=== PATIENT | male | born 1965 | race Caucasian/White ===

== ENCOUNTER 2021-11-28 10:37 | Emergency (ER) | payer OTHER, SELFPAY ==
[~2021-11-28] VITALS: Ht 175.3 cm; Wt 75.2 kg
[~2021-11-28 10:37] MED LIST: ACET65TA PO; AMBI10TA PO; CIPR25SS PO; FLAG500T PO; LISI10TA4 OR; ONDA-1 PO; PERC7.5T8 PO; ZEST20TA PO
[2021-11-28 12:12] LABS: BASO % 0.2 % (0.0-1.0); EOS # 0.1 10^3/uL (0.0-0.5); EOS % 1.1 % (0.0-3.0); HEMATOCRIT 47.4 % (42.0-52.0); HEMOGLOBIN 16.1 g/dl (13.5-17.5); LYMPH # 0.9 10^3/uL (1.5-5.0); MEAN CORPUSCULAR HEMOGLOBIN 28.8 pg (27.0-33.0); MEAN CORPUSCULAR VOLUME 84.8 fl (80.0-96.0); MONO # 0.6 10^3/uL (0.0-0.8); MONO % 4.6 % (2.0-8.0); NEUTROPHILS # 11.4 10^3/uL (1.5-8.5); NEUTROPHILS % 86.6 % (36.0-66.0); PLATELET COUNT, AUTOMATED 305 10^3/uL (150-450); RED BLOOD COUNT 5.59 10^6/uL (4.30-6.10); WHITE BLOOD COUNT 13.2 10^3/uL (4.0-10.0)
[2021-11-28] MEDS ORDERED: ASPIRIN 325 MG TAB PO ONE (12:25)
[2021-11-28 12:38] VITALS: BP 176/114
[2021-11-28 13:09] LABS: BLOOD UREA NITROGEN 15 MG/DL (7-18); CALCIUM LEVEL 9.5 MG/DL (8.5-10.1); CARBON DIOXIDE LEVEL 27 MEQ/L (21-32); CHLORIDE LEVEL 105 MEQ/L (98-107); CREATININE FOR GFR 1.01 MG/DL (0.70-1.30); GLOMERULAR FILTRATION RATE > 60.0 (>56); GLUCOSE, FASTING 97 MG/DL (70-100); POTASSIUM SERUM 4.5 MEQ/L (3.5-5.1); SODIUM LEVEL 138 MEQ/L (136-145)
[2021-11-28 13:11] LABS: CK-MB VALUE MASS 1.1 NG/ML (<3.6); MB/CK RELATIVE INDEX 0.38 (< OR =4)
[2021-11-28 14:03] LABS: CK-MB VALUE MASS < 1.0 NG/ML (<3.6); CPK CREATINE PHOSPHOKINASE 161 U/L (39-308); MB/CK RELATIVE INDEX 0.62 (< OR =4)
[2021-11-28] MEDS ORDERED: PRIL20TA2 PO (14:12)
[2021-11-28] MEDS ORDERED: LISI10TA22 PO (14:12)
[2021-11-28] MEDS ORDERED: ASPI81TA26 PO (14:12)
[2021-11-28 14:34] VITALS: BP 138/66
== END 2021-11-28 14:39 | disposition home or self-care (01) ==
LOC: M ED 10:37
DX: R07.89 Other chest pain (principal); I10 Essential (primary) hypertension; K21.9 Gastro-esophageal reflux disease without esophagitis; Z82.49 Family history of ischemic heart disease and other diseases of the circulatory system

== ENCOUNTER 2022-05-09 14:36 | Emergency (ER) | payer SELFPAY ==
[~2022-05-09] VITALS: Ht 175.3 cm; Wt 70.4 kg
[~2022-05-09 14:36] MED LIST changes: +ASPI81TA26 PO; +LISI10TA22 PO; +PRIL20TA2 PO
[2022-05-09 15:06] LABS: BASO % 0.2 % (0.0-1.0); EOS # 0.5 10^3/uL (0.0-0.5); EOS % 2.8 % (0.0-3.0); HEMATOCRIT 46.6 % (42.0-52.0); HEMOGLOBIN 15.3 g/dl (13.5-17.5); LYMPH # 1.1 10^3/uL (1.5-5.0); LYMPH % 6.5 % (24.0-44.0); MEAN CORPUSCULAR HEMOGLOBIN 27.7 pg (27.0-33.0); MEAN CORPUSCULAR HGB CONC 32.8 g/dl (32.0-36.5); MEAN CORPUSCULAR VOLUME 84.3 fl (80.0-96.0); MONO # 1.2 10^3/uL (0.0-0.8); MONO % 7.1 % (2.0-8.0); NEUTROPHILS # 14.2 10^3/uL (1.5-8.5); NEUTROPHILS % 82.7 % (36.0-66.0); PLATELET COUNT, AUTOMATED 265 10^3/uL (150-450); RED BLOOD COUNT 5.53 10^6/uL (4.30-6.10); WHITE BLOOD COUNT 17.2 10^3/uL (4.0-10.0)
[2022-05-09 16:05] LABS: ALBUMIN 3.7 GM/DL (3.2-5.2); ALT/SGPT 23 U/L (12-78); BILIRUBIN,DIRECT 0.5 MG/DL (0.0-0.2); BILIRUBIN,TOTAL 1.5 MG/DL (0.2-1.0); BLOOD UREA NITROGEN 16 MG/DL (7-18); CALCIUM LEVEL 9.1 MG/DL (8.5-10.1); CARBON DIOXIDE LEVEL 27 MEQ/L (21-32); CHLORIDE LEVEL 102 MEQ/L (98-107); CREATININE FOR GFR 1.16 MG/DL (0.70-1.30); GLOMERULAR FILTRATION RATE > 60.0 (>56); GLUCOSE, FASTING 108 MG/DL (70-100); POTASSIUM SERUM 3.6 MEQ/L (3.5-5.1); SODIUM LEVEL 138 MEQ/L (136-145); TOTAL PROTEIN 7.3 GM/DL (6.4-8.2)
[2022-05-09] MEDS ORDERED: OMEP40CA4 PO (19:17)
[2022-05-09] MEDS ORDERED: SUCR1TA PO (19:17)
[2022-05-09 19:28] VITALS: BP 146/82
[2022-05-09 22:29] LABS: LIPASE 66 U/L (73-393)
== END 2022-05-09 19:28 | disposition home or self-care (01) ==
LOC: M ED 14:36
DX: R07.89 Other chest pain (principal); K21.9 Gastro-esophageal reflux disease without esophagitis; R00.0 Tachycardia, unspecified; I10 Essential (primary) hypertension; Z90.49 Acquired absence of other specified parts of digestive tract; Z79.82 Long term (current) use of aspirin; Z79.899 Other long term (current) drug therapy

== ENCOUNTER 2023-08-19 13:20 | Emergency (ER) | payer BC, SELFPAY ==
[~2023-08-19] VITALS: Ht 175.3 cm; Wt 72.7 kg
[2023-08-19 13:20] VITALS: TEMP 97.6
[~2023-08-19 13:20] MED LIST changes: +OMEP40CA4 PO; +SUCR1TA PO
[2023-08-19] MEDS: SUCRALFATE SUSP 1GM/10ML UD PO ONE (14:13)
[2023-08-19] MEDS: PANTOPRAZOLE 40MG VIAL IV ONE (14:13)
[2023-08-19 14:24] LABS: BASO # 0.1 10^3/uL (0.0-0.2); BASO % 0.4 % (0.0-1.0); EOS # 0.5 10^3/uL (0.0-0.5); EOS % 4.6 % (0.0-3.0); HEMOGLOBIN 15.9 g/dl (13.5-17.5); LYMPH # 1.8 10^3/uL (1.5-5.0); LYMPH % 15.4 % (24.0-44.0); MEAN CORPUSCULAR HEMOGLOBIN 28.2 pg (27.0-33.0); MEAN CORPUSCULAR HGB CONC 33.8 g/dl (32.0-36.5); MEAN CORPUSCULAR VOLUME 83.3 fl (80.0-96.0); MONO # 0.8 10^3/uL (0.0-0.8); MONO % 7.1 % (2.0-8.0); NEUTROPHILS # 8.4 10^3/uL (1.5-8.5); NEUTROPHILS % 72.2 % (36.0-66.0); PLATELET COUNT, AUTOMATED 333 10^3/uL (150-450); RED BLOOD COUNT 5.64 10^6/uL (4.30-6.10); WHITE BLOOD COUNT 11.6 10^3/uL (4.0-10.0)
[2023-08-19 14:48] LABS: LIPASE 26 U/L (12-53)
[2023-08-19 14:51] LABS: ALBUMIN 3.8 G/DL (3.2-5.2); ALKALINE PHOSPHATASE 135 U/L (46-116); ALT/SGPT 25 U/L (7.0-40); AST/SGOT 19 U/L (<34); BILIRUBIN,DIRECT 0.2 MG/DL (<0.4); BILIRUBIN,TOTAL 0.7 MG/DL (0.3-1.2); BLOOD UREA NITROGEN 14 MG/DL (9-23); CALCIUM LEVEL 9.4 MG/DL (8.5-10.1); CARBON DIOXIDE LEVEL 27 MMOL/L (20-31); CHLORIDE LEVEL 105 MMOL/L (98-107); CK-MB VALUE MASS < 1.0 NG/ML (<3.6); CREATININE FOR GFR 0.97 MG/DL (0.70-1.30); GLOMERULAR FILTRATION RATE > 60.0 (>56); GLUCOSE, FASTING 98 MG/DL (60-100); POTASSIUM SERUM 4.7 MMOL/L (3.5-5.1); SODIUM LEVEL 138 MMOL/L (136-145); TOTAL PROTEIN 7.5 G/DL (5.7-8.2)
[2023-08-19 14:52] LABS: CPK CREATINE PHOSPHOKINASE 81 U/L (46-171); MB/CK RELATIVE INDEX 1.23 (< OR =4); THYROID STIMULATING HORMONE 2.271 uIU/ML (0.55-4.78)
[2023-08-19] MEDS ORDERED: ISOVUE-370 76% 100ML VIAL As Ordered ONE (15:00)
[2023-08-19] MEDS: MORPHINE 2 MG/ML 1ML VIAL IV ONE (15:08)
[2023-08-19] MEDS: MORPHINE 4 MG/ML 1ML VIAL IV PRN (15:40)
[2023-08-19 15:53] LABS: CK-MB VALUE MASS < 1.0 NG/ML (<3.6)
[2023-08-19 15:54] LABS: CPK CREATINE PHOSPHOKINASE 176 U/L (46-171); MB/CK RELATIVE INDEX 0.56 (< OR =4)
[2023-08-19] MEDS ORDERED: HYDR-3713 PO (16:19)
[2023-08-19] MEDS ORDERED: SUCR1SS PO (16:37)
[2023-08-19 16:40] VITALS: BP 149/76; O2SAT 98
== END 2023-08-19 16:47 | disposition home or self-care (01) ==
LOC: M ED 13:20
DX: K80.50 Calculus of bile duct without cholangitis or cholecystitis without obstruction (principal); K21.9 Gastro-esophageal reflux disease without esophagitis; Z98.52 Vasectomy status; Z79.1 Long term (current) use of non-steroidal anti-inflammatories (NSAID); Z79.810 Long term (current) use of selective estrogen receptor modulators (SERMs)
CPT/HCPCS: 71045; 71275; 74177; 80048; 80076; 82550; 82553; 83690; 83880; 84443; 84484; 85025; 93005; 93041; 94760; 96374; 96375; 96376; 99284; C9113; Q9967

== ENCOUNTER → 2023-10-04 | Outpatient (CLI) | payer BC ==
[~2023-10-04] MED LIST changes: +HYDR-3713 PO; +SUCR1SS PO
[2023-10-04 19:03] LABS: BASO # 0.1 10^3/uL (0.0-0.2); BASO % 0.6 % (0.0-1.0); EOS # 0.4 10^3/uL (0.0-0.5); EOS % 4.9 % (0.0-3.0); HEMATOCRIT 48.9 % (42.0-52.0); HEMOGLOBIN 16.3 g/dl (13.5-17.5); LYMPH # 2.2 10^3/uL (1.5-5.0); LYMPH % 25.1 % (24.0-44.0); MEAN CORPUSCULAR HEMOGLOBIN 28.3 pg (27.0-33.0); MEAN CORPUSCULAR HGB CONC 33.3 g/dl (32.0-36.5); MEAN CORPUSCULAR VOLUME 84.9 fl (80.0-96.0); MONO # 0.6 10^3/uL (0.0-0.8); MONO % 6.8 % (2.0-8.0); NEUTROPHILS # 5.3 10^3/uL (1.5-8.5); PLATELET COUNT, AUTOMATED 283 10^3/uL (150-450); RED BLOOD COUNT 5.76 10^6/uL (4.30-6.10); WHITE BLOOD COUNT 8.6 10^3/uL (4.0-10.0)
[2023-10-04 19:28] LABS: HEMOGLOBIN A1c 5.3 % (4.0-6.0)
[2023-10-04 19:33] LABS: ALBUMIN 4.4 G/DL (3.2-5.2); ALKALINE PHOSPHATASE 130 U/L (46-116); ALT/SGPT 30 U/L (7.0-40); AST/SGOT 18 U/L (<34); BILIRUBIN,TOTAL 0.4 MG/DL (0.3-1.2); BLOOD UREA NITROGEN 19 MG/DL (9-23); CALCIUM LEVEL 9.4 MG/DL (8.5-10.1); CARBON DIOXIDE LEVEL 28 MMOL/L (20-31); CHLORIDE LEVEL 102 MMOL/L (98-107); CHOLESTEROL LEVEL 264 MG/DL (<200); CHOLESTEROL RISK RATIO 5.21 (<5); CREATININE FOR GFR 0.89 MG/DL (0.70-1.30); GLOMERULAR FILTRATION RATE > 60.0 (>56); GLUCOSE, FASTING 63 MG/DL (60-100); HDL CHOLESTEROL 50.6 MG/DL (>40); LDL CHOLESTEROL 140.6 MG/DL (<100); NON-HDL-C 213.4 MG/DL; POTASSIUM SERUM 4.1 MMOL/L (3.5-5.1); SODIUM LEVEL 140 MMOL/L (136-145); TRIGLYCERIDES LEVEL 364 MG/DL (<150)
[2023-10-06 10:08] LABS: PSA TOTAL 1.6 ng/mL (0.0-4.0); TESTOSTERONE FREE (DIRECT) 9.2 pg/mL (7.2-24.0)
== END ==
LOC: M WUC 14:40
PROVIDERS: ATTEND Registered Nurse
DX: Z00.00 Encounter for general adult medical examination without abnormal findings (principal); F52.21 Male erectile disorder; I10 Essential (primary) hypertension

== ENCOUNTER → 2023-10-12 | Outpatient (REF) | payer BC | LOC: M LAB REF 17:27 | PROVIDERS: ATTEND Plastic Surgery Surgery of the Hand | DX: M75.82 Other shoulder lesions, left shoulder (principal) ==

== ENCOUNTER → 2023-11-02 | Outpatient (CLI) | payer BC ==
[~2023-11-02] MED LIST changes: +LISI40TA4 PO; +OMEP-173 PO; +SILD50TA2 PO; +THERTAB52 PO; +TRAZ-252 PO
[2023-11-02 19:07] LABS: HIV 1&2 SCREEN NEGATIVE (NEGATIVE)
[2023-11-02 19:15] LABS: HEPATITIS B CORE ANTIBODY IGM NEGATIVE (NEGATIVE)
[2023-11-02 19:16] LABS: HEPATITIS C VIRUS ABY INDEX < 0.02 INDEX (<0.8)
== END ==
LOC: M WUC 14:17
PROVIDERS: ATTEND Physician Assistant
DX: L40.0 Psoriasis vulgaris (principal)

== ENCOUNTER 2023-11-06 09:29 | Day surgery (SDC) | payer BC ==
[~2023-11-06] VITALS: Ht 175.3 cm; Wt 76.2 kg
[2023-11-06] MEDS: LR 1,000 ML IV SCH (11:00)
[2023-11-06] MEDS ORDERED: MIDAZOLAM INJ 2MG/2ML VIAL As Ordered ONE (11:56)
[2023-11-06] MEDS ORDERED: fentaNYL 100 MCG/2 ML INJECTION As Ordered ONE (11:56)
[2023-11-06] MEDS ORDERED: ONDANSETRON 4MG 2ML VIAL As Ordered ONE (11:56)
[2023-11-06] MEDS ORDERED: propofoL 200 MG/20 ML VIAL As Ordered ONE (11:56)
[2023-11-06] MEDS ORDERED: LIDOCAINE 2% 100MG/5ML SDV (FOR ANES.) As Ordered ONE (11:56)
[2023-11-06] MEDS ORDERED: KETAMINE HCL 200MG/20ML VIAL As Ordered ONE (11:56)
[2023-11-06] MEDS: BACITRACIN OINTMENT 30GM TUBE As Ordered ONE (13:23)
[2023-11-06] MEDS: LIDOCAINE W/EPINEPHRINE 1% 20ML VIAL As Ordered ONE (13:23)
[2023-11-06] MEDS: ceFAZolin SOD 2 GM in IV 1 EA IV ONE (13:38)
[2023-11-06] MEDS ORDERED: ESMOLOL INJ 100MG/10ML VIAL As Ordered ONE (13:50)
[2023-11-06] MEDS ORDERED: ePHEDrine SULFATE 25 MG/5 ML(5MG/ML) SYRINGE As Ordered ONE (14:01)
[2023-11-06] MEDS ORDERED: PHENYLephrine 500MCG 5ML (100MCG/ML) SYRINGE As Ordered ONE (14:01)
[2023-11-06] MEDS ORDERED: ACETAMINOPHEN 1000MG 100ML IV BAG As Ordered ONE (14:11)
[2023-11-06] MEDS ORDERED: MORPHINE 2 MG/ML 1ML VIAL IV PRN (14:35)
[2023-11-06] MEDS ORDERED: ONDANSETRON 4MG 2ML VIAL IV PRN (14:35)
[2023-11-06] MEDS ORDERED: fentaNYL 100 MCG/2 ML INJECTION IV PRN (14:35)
[2023-11-06] MEDS ORDERED: oxyCODONE 5MG TAB PO PRN (14:35)
[2023-11-06] MEDS ORDERED: TRAM50TA2 PO (15:06)
[2023-11-06] MEDS ORDERED: ALBU2.5V10 NEB (15:09)
[2023-11-06 15:25] VITALS: BP 158/79; TEMP 97.7; O2SAT 98
== END 2023-11-06 15:53 | disposition home or self-care (01) ==
LOC: M SDC 09:29
PROVIDERS: ATTEND Plastic Surgery Surgery of the Hand
DX: D03.62 Melanoma in situ of left upper limb, including shoulder (principal); I10 Essential (primary) hypertension; E78.5 Hyperlipidemia, unspecified; K21.9 Gastro-esophageal reflux disease without esophagitis; Z79.899 Other long term (current) drug therapy
CPT/HCPCS: 11603; 12031; 88307; C9290; J0131; J0665; J0690; J1100; J1805; J2250; J2371; J2405; J3010

== ENCOUNTER → 2024-03-27 | Outpatient (CLI) | payer BC ==
[~2024-03-27] MED LIST changes: +ALBU2.5V10 NEB; +TRAM50TA2 PO
[2024-03-27 11:23] LABS: ALBUMIN 3.9 G/DL (3.2-5.2); ALKALINE PHOSPHATASE 133 U/L (46-116); ALT/SGPT 33 U/L (7.0-40); AST/SGOT 14 U/L (<34); BILIRUBIN,TOTAL 0.4 MG/DL (0.3-1.2); BLOOD UREA NITROGEN 24 MG/DL (9-23); CALCIUM LEVEL 9.2 MG/DL (8.5-10.1); CARBON DIOXIDE LEVEL 28 MMOL/L (20-31); CHLORIDE LEVEL 108 MMOL/L (98-107); CHOLESTEROL LEVEL 269 MG/DL (<200); CHOLESTEROL RISK RATIO 6.74 (<5); CREATININE FOR GFR 1.03 MG/DL (0.70-1.30); GLOMERULAR FILTRATION RATE > 60.0 (>56); GLUCOSE, FASTING 81 MG/DL (60-100); HDL CHOLESTEROL 39.9 MG/DL (>40); NON-HDL-C 229.1 MG/DL; POTASSIUM SERUM 4.8 MMOL/L (3.5-5.1); SODIUM LEVEL 140 MMOL/L (136-145); TOTAL PROTEIN 7.6 G/DL (5.7-8.2); TRIGLYCERIDES LEVEL 490 MG/DL (<150)
== END ==
LOC: M WUC 08:20
PROVIDERS: ATTEND Registered Nurse
DX: E78.2 Mixed hyperlipidemia (principal)

== ENCOUNTER → 2024-05-20 | Outpatient (CLI) | payer BC ==
[2024-05-20 10:44] LABS: ALBUMIN 4.1 G/DL (3.2-5.2); ALKALINE PHOSPHATASE 91 U/L (40-129); ALT/SGPT 38 U/L (7.0-40); AST/SGOT 22 U/L (<34); BILIRUBIN,TOTAL 0.5 MG/DL (0.3-1.2); BLOOD UREA NITROGEN 17 MG/DL (9-23); CALCIUM LEVEL 9.9 MG/DL (8.5-10.1); CARBON DIOXIDE LEVEL 28 MMOL/L (20-31); CHLORIDE LEVEL 108 MMOL/L (98-107); CHOLESTEROL LEVEL 238 MG/DL (<200); CHOLESTEROL RISK RATIO 5.21 (<5); CREATININE FOR GFR 1.11 MG/DL (0.70-1.30); GLOMERULAR FILTRATION RATE > 60.0 (>56); GLUCOSE, FASTING 92 MG/DL (60-100); HDL CHOLESTEROL 45.6 MG/DL (>40); LDL CHOLESTEROL 147.8 MG/DL (<100); NON-HDL-C 192.4 MG/DL; POTASSIUM SERUM 4.5 MMOL/L (3.5-5.1); SODIUM LEVEL 141 MMOL/L (136-145); TOTAL PROTEIN 7.6 G/DL (5.7-8.2); TRIGLYCERIDES LEVEL 223 MG/DL (<150)
== END ==
LOC: M WUC 08:40
PROVIDERS: ATTEND Registered Nurse
DX: E78.2 Mixed hyperlipidemia (principal)

== ENCOUNTER 2024-10-04 00:44 | Emergency (ER) | payer BC ==
[~2024-10-04] VITALS: Ht 175.3 cm; Wt 76.4 kg
[2024-10-04 01:35] LABS: BASO % 0.4 % (0.0-1.0); EOS # 0.4 10^3/uL (0.0-0.5); EOS % 4.1 % (0.0-3.0); HEMATOCRIT 42.4 % (42.0-52.0); HEMOGLOBIN 14.8 g/dl (13.5-17.5); LYMPH # 1.8 10^3/uL (1.5-5.0); LYMPH % 20.1 % (24.0-44.0); MEAN CORPUSCULAR HEMOGLOBIN 28.6 pg (27.0-33.0); MEAN CORPUSCULAR HGB CONC 34.9 g/dl (32.0-36.5); MEAN CORPUSCULAR VOLUME 81.9 fl (80.0-96.0); MONO # 0.8 10^3/uL (0.0-0.8); MONO % 8.3 % (2.0-8.0); NEUTROPHILS # 6.1 10^3/uL (1.5-8.5); NEUTROPHILS % 66.6 % (36.0-66.0); PLATELET COUNT, AUTOMATED 292 10^3/uL (150-450); RED BLOOD COUNT 5.18 10^6/uL (4.30-6.10); WHITE BLOOD COUNT 9.1 10^3/uL (4.0-10.0)
[2024-10-04 01:40] LABS: LIPASE 29 U/L (12-53)
[2024-10-04 01:42] LABS: ALKALINE PHOSPHATASE 113 U/L (40-129); ALT/SGPT 37 U/L (7.0-40); AST/SGOT 22 U/L (<34); BILIRUBIN,DIRECT 0.2 MG/DL (<0.4); BILIRUBIN,TOTAL 0.7 MG/DL (0.3-1.2); BLOOD UREA NITROGEN 16 MG/DL (9-23); CARBON DIOXIDE LEVEL 28 MMOL/L (20-31); CHLORIDE LEVEL 101 MMOL/L (98-107); CK-MB VALUE MASS < 1.0 NG/ML (<3.6); CREATININE FOR GFR 1.05 MG/DL (0.70-1.30); GLOMERULAR FILTRATION RATE > 60.0 (>56); GLUCOSE, FASTING 106 MG/DL (60-100); POTASSIUM SERUM 3.7 MMOL/L (3.5-5.1); SODIUM LEVEL 138 MMOL/L (136-145); TOTAL PROTEIN 7.6 G/DL (5.7-8.2)
[2024-10-04 01:46] LABS: INR 0.9; PROTHROMBIN TIME 12.5 SECONDS (12.5-14.5)
[2024-10-04 01:59] LABS: CPK CREATINE PHOSPHOKINASE 104 U/L (46-171); MB/CK RELATIVE INDEX 0.96 (< OR =4)
[2024-10-04] MEDS: ONDANSETRON 4MG 2ML VIAL IV ONE (02:58)
[2024-10-04] MEDS ORDERED: ISOVUE-370 76% 100ML VIAL As Ordered ONE (02:59)
[2024-10-04] MEDS: MORPHINE 4 MG/ML 1ML VIAL IV PRN (02:59)
[2024-10-04] MEDS: ASPIRIN 81MG CHEW TABLET PO ONE (03:24)
[2024-10-04 03:38] LABS: CK-MB VALUE MASS < 1.0 NG/ML (<3.6)
[2024-10-04 03:40] LABS: CPK CREATINE PHOSPHOKINASE 104 U/L (46-171); MB/CK RELATIVE INDEX 0.96 (< OR =4)
[2024-10-04] MEDS: NITROGLYCERIN 0.4MG SUBL TABLET SL PRN (04:29)
[2024-10-04] MEDS: MAALOX 30 ML SUSP *UDC PO ONE (04:40)
[2024-10-04] MEDS: NS (Normal Saline) 0.9% 1,000 ML IV ONE (04:50)
[2024-10-04] MEDS: KETOROLAC 30 MG/ML 1ML VIAL IV ONE (05:26)
[2024-10-04 06:10] VITALS: BP 148/84
[2024-10-04] MEDS: lisinopriL 40MG TAB PO ONE (06:10)
[2024-10-04] MEDS: HYDROMORPHONE HCL 0.5 MG/ 0.5 ML SYRINGE IV PRN (06:11)
[2024-10-04 06:51] VITALS: BP 126/78; TEMP 98.1; O2SAT 99
== END 2024-10-04 06:52 | disposition home or self-care (01) ==
LOC: M ED 00:44
DX: R07.89 Other chest pain (principal); I10 Essential (primary) hypertension; K21.9 Gastro-esophageal reflux disease without esophagitis; Z79.899 Other long term (current) drug therapy
CPT/HCPCS: 71046; 71275; 74177; 80053; 82248; 82550; 82553; 83690; 84484; 85025; 85610; 93005; 96361; 96374; 96375; 96376; 99285; J1171; J1885; J2405; Q9967

== ENCOUNTER → 2024-11-05 | Outpatient (CLI) | payer BC | LOC: M RAD 08:04 | PROVIDERS: ATTEND Nurse Practitioner Family | DX: K80.80 Other cholelithiasis without obstruction (principal); K76.0 Fatty (change of) liver, not elsewhere classified; Q44.6 Cystic disease of liver; K80.20 Calculus of gallbladder without cholecystitis without obstruction; N28.1 Cyst of kidney, acquired ==

== ENCOUNTER → 2025-05-21 | Outpatient (CLI) | payer BC ==
[~2025-05-21] MED LIST changes: +ACET-897 PO; +AMOX875T2 PO; +FENO54TA2 PO; +IBUP600T42 PO; +LISI40TA10 PO; -LISI40TA4 PO; +SIME80CH6 PO
[2025-05-21 13:00] LABS: BASO # 0.0 10^3/uL (0.0-0.2); BASO % 0.5 % (0.0-1.0); EOS # 0.3 10^3/uL (0.0-0.5); EOS % 3.8 % (0.0-3.0); LYMPH # 1.8 10^3/uL (1.5-5.0); LYMPH % 24.6 % (24.0-44.0); MONO # 0.5 10^3/uL (0.0-0.8); MONO % 6.6 % (2.0-8.0); NEUTROPHILS # 4.7 10^3/uL (1.5-8.5); NEUTROPHILS % 64.1 % (36.0-66.0); PLATELET COUNT, AUTOMATED 319 10^3/uL (150-450)
[2025-05-21 13:12] LABS: ALT/SGPT 27.0 U/L (7.0-40); AST/SGOT 21.0 U/L (<34); CALCIUM LEVEL 9.2 MG/DL (8.3-10.6); CARBON DIOXIDE LEVEL 26.0 MMOL/L (20-31); CHLORIDE LEVEL 103.0 MMOL/L (98-107); CHOLESTEROL LEVEL 237.0 MG/DL (<200); CHOLESTEROL RISK RATIO 5.2 (<5); CREATININE FOR GFR 0.98 MG/DL (0.70-1.30); GLOMERULAR FILTRATION RATE 88.3 (>49); LDL CHOLESTEROL 135.9 MG/DL (<100); NON-HDL-C 191.5 MG/DL; POTASSIUM SERUM 4.5 MMOL/L (3.5-5.1); SODIUM LEVEL 139.0 MMOL/L (136-145); TRIGLYCERIDES LEVEL 278.0 MG/DL (<150)
== END ==
LOC: M WUC 08:37
PROVIDERS: ATTEND Registered Nurse
DX: E78.2 Mixed hyperlipidemia (principal); R53.83 Other fatigue